=== PATIENT | female | born 1975 | race Caucasian/White ===

== ENCOUNTER → 2016-11-30 | Outpatient (CLI) | payer MEDICARE ==
[~2016-11-30] MED LIST: NONE PER PT
== END | disposition home or self-care (01) ==
LOC: STAR 10:18
PROVIDERS: ATTEND Obstetrics & Gynecology Female Pelvic Medicine and Reconstructive Surgery
DX: Z02.9 Encounter for administrative examinations, unspecified (principal)

== ENCOUNTER 2016-12-06 08:30 | Day surgery (SDC) | payer MEDICARE ==
[~2016-12-06] VITALS: Ht 162.6 cm; Wt 106.5 kg
[~2016-12-06 08:30] MED LIST changes: +BUPIVACAINE/PF 0.25% ONE; +EPINEPHRINE 1 MG/ML, 1ML ONE
[2016-12-06] MEDS ORDERED: LACTATED RINGERS 1,000 ML IV SCH (09:00)
[2016-12-06] MEDS ORDERED: NEOMY/POLYMYXIN B GU IRR. 1 ML IRRIG ONE (09:15)
[2016-12-06] MEDS ORDERED: FUROSEMIDE 20 MG/2 ML ONE (09:15)
[2016-12-06 09:25] LABS: HCG UR OBC PASS
[2016-12-06 09:43] VITALS: BP 142/95
[2016-12-06] MEDS ORDERED: MIDAZOLAM 1 MG/ML, 2ML ONE (11:56)
[2016-12-06] MEDS ORDERED: FENTANYL PF 250 MCG/5ML ONE (11:56)
[2016-12-06] MEDS ORDERED: SUCCINYLCHOLINE 20 MG/ML, 10ML ONE (12:02)
[2016-12-06] MEDS ORDERED: CEFAZOLIN 1,000 MG ONE (12:02)
[2016-12-06] MEDS ORDERED: GLYCOPYRROLATE 0.2MG/1ML ONE (12:02)
[2016-12-06] MEDS ORDERED: NEOSTIGMINE 1 MG/ML, 10ML ONE (12:02)
[2016-12-06] MEDS ORDERED: PROPOFOL 10 MG/ML, 20ML ONE (12:02)
[2016-12-06] MEDS ORDERED: ROCURONIUM 10 MG/ML ONE (12:02)
[2016-12-06] MEDS ORDERED: DEXAMETHASONE 4 MG/ML, 1ML ONE (12:02)
[2016-12-06] MEDS ORDERED: ONDANSETRON 2MG/ML, 2ML ONE (12:02)
[2016-12-06] MEDS ORDERED: PROMETHAZINE 25 MG/ML, 1ML IV PRN (12:30)
[2016-12-06] MEDS ORDERED: MEPERIDINE/PF 25MG/0.5ML IVPush PRN (12:30)
[2016-12-06] MEDS ORDERED: MIDAZOLAM 1 MG/ML, 2ML IV PRN (12:30)
[2016-12-06] MEDS ORDERED: ACETAMINOPHEN 325 MG TABLET PO PRN (12:30)
[2016-12-06] MEDS ORDERED: LABETALOL 5MG/ML, 20ML IV PRN (12:30)
[2016-12-06] MEDS ORDERED: ALBUTEROL SULFATE 2.5 MG/3 ML NPPB PRN (12:30)
[2016-12-06] MEDS ORDERED: OXYcodone 5 MG/5 ML ORAL.SOL UDC PO PRN (12:30)
[2016-12-06] MEDS ORDERED: hydrALAzine 20 MG/ML, 1ML IV PRN (12:30)
[2016-12-06] MEDS ORDERED: ONDANSETRON 2MG/ML, 2ML IVPush PRN (12:30)
[2016-12-06] MEDS ORDERED: HYDROmorphone 1 MG/ML, 1ML IV PRN (12:30)
[2016-12-06] MEDS ORDERED: FENTANYL PF 100 MCG/2ML ONE ×2 (13:03→13:59)
[2016-12-06] MEDS ORDERED: ACETAMINOPHEN 650 MG/20.3 ML UDC ONE (13:59)
[2016-12-06] MEDS ORDERED: OXYcodone 5 MG/5 ML ORAL.SOL UDC ONE (14:00)
[2016-12-06] MEDS: FENTANYL PF 100 MCG/2ML IV PRN ×2 (14:20→14:34)
== END 2016-12-06 18:20 | disposition home or self-care (01) ==
LOC: OUT 08:30
PROVIDERS: ATTEND Obstetrics & Gynecology Female Pelvic Medicine and Reconstructive Surgery
DX: N81.5 Vaginal enterocele (principal); N81.11 Cystocele, midline; N39.3 Stress incontinence (female) (male); N81.6 Rectocele; N92.1 Excessive and frequent menstruation with irregular cycle; N94.6 Dysmenorrhea, unspecified; Z98.890 Other specified postprocedural states; E66.01 Morbid (severe) obesity due to excess calories; Z68.41 Body mass index [BMI] 40.0-44.9, adult; Z87.442 Personal history of urinary calculi; Z87.828 Personal history of other (healed) physical injury and trauma; Z90.49 Acquired absence of other specified parts of digestive tract
CPT/HCPCS: 57265; 57282; 57288; 58552; 81025; 88307; C1771; J0171; J0330; J0690; J1100; J1940; J2250; J2405; J2704; J2710; J3010; J3490